=== PATIENT | female | born 1985 | race Caucasian/White ===

== ENCOUNTER 2016-10-18 04:23 | Outpatient (CLI) | payer MEDICAID ==
[~2016-10-18] VITALS: Ht 152.4 cm; Wt 67.3 kg
[2016-10-18 04:30] VITALS: Ht 152.4 cm; Wt 67.3 kg
[2016-10-18 04:32] VITALS: BP 117/69; PULSE 85; RESP 16
[2016-10-18] MEDS ORDERED: LACTATED RINGER'S 1,000 ML IV SCH (04:53)
--- NOTE | 2016-10-18 05:41 | RADRPT ---
PROCEDURE: ULTRASOUND OBSTETRICAL CLINICAL INDICATION: 31-year-old female in labor for cervical length evaluation. TECHNIQUE: Multiple sonographic images of the pelvis were obtained. The images were reviewed on a PACS workstation. COMPARISON: No prior studies are available for comparison. FINDINGS: The cervix is closed with a length of 4.0 cm. There is a single viable intrauterine gestation. Card iac activity is present with 148 beats per minute. There is a vertex presentation. The placenta is p osterior. There is no evidence for an abruption or placenta previa. IMPRESSION: 1. Single viable intrauterine gestation with vertex presentation. 2. The cervix appears closed with a length of 4.0 cm. .Santos Contreras MD, Date Time Electronically viewed and signed by .Santos Contreras MD, MD on 10/18/2016 05:41 .M/
[2016-10-18 05:43] LABS: ADD SCAN DIFF NO
[2016-10-18 05:53] LABS: ADD UMIC YES; BASOPHILS % 0.2 % (0.0-2.0); EOSINOPHILS # 0.2 10^3/ul (0.0-0.5); EOSINOPHILS % 2.5 % (0.0-7.0); HEMATOCRIT 36.9 % (37.0-47.0); HEMOGLOBIN 12.5 g/dl (12.0-16.0); LYMPHOCYTES # 0.7 10^3/ul (0.8-2.9); LYMPHOCYTES % 7.7 % (15.0-51.0); MEAN CORPUSCULAR HEMOGLOBIN 33.1 pg (29.0-33.0); MEAN CORPUSCULAR HGB CONC 33.9 g/dl (32.0-37.0); MEAN CORPUSCULAR VOLUME 97.6 fl (82.0-101.0); MEAN PLATELET VOLUME 10.6 fl (7.4-10.4); MONOCYTE # 0.4 10^3/ul (0.3-0.9); MONOCYTES % 4.4 % (0.0-11.0); NEUTROPHIL # 7.8 10^3/ul (1.6-7.5); NEUTROPHILS % 84.3 % (39.0-77.0); PLATELET COUNT 201 10^3/UL (140-415); RED BLOOD COUNT 3.78 10^6/ul (4.20-5.40); RED CELL DISTRIBUTION WIDTH 13.8 % (11.5-14.5); URINE BILIRUBIN (Dip) NEGATIVE (NEGATIVE); URINE BLOOD (Dip) TRACE (NEGATIVE); URINE COLOR BROWN (YELLOW); URINE GLUCOSE (Dip) NEGATIVE (NEGATIVE); URINE KETONES (Dip) NEGATIVE (NEGATIVE); URINE LEUKOCYTE ESTERASE (Dip) 3+ (NEGATIVE); URINE NITRITE (Dip) NEGATIVE (NEGATIVE); URINE TOTAL PROTEIN (Dip) 1+ (NEGATIVE); URINE UROBILINOGEN (Dip) 0.2 E.U./dL (0.1-1.0); WHITE BLOOD COUNT 9.2 10^3/ul (4.8-10.8)
[2016-10-18 06:16] LABS: ALBUMIN 3.5 g/dl (3.3-4.9); ALBUMIN/GLOBULIN RATIO 1.06; BILIRUBIN,INDIRECT 0.2 mg/dl (0-1.1); BILIRUBIN,TOTAL 0.2 mg/dl (0.2-1.3); CALCIUM 8.7 mg/dl (8.4-10.2); CREATININE 0.54 mg/dl (0.44-1.00); POTASSIUM 3.7 mmol/L (3.5-5.1); TOTAL PROTEIN 6.8 g/dl (6.1-8.1)
[2016-10-18 06:27] LABS: BACTERIA,URINE MANY; SQUAMOUS EPITHELIAL CELL,UR MANY
[2016-10-18 06:28] LABS: URINE RBCS 0-2 /HPF (0)
--- NOTE | 2016-10-18 06:57 | CONS ---
Date/Time of Note Date/Time of Note DATE: 10/18/16 TIME: 06:54 Assessment/Plan Assessment/Plan Additional Assessment/Plan No e/o ptl. N/V/D likely due to food poisoning. Discharge home with ptl precautions. Encourage PO hydration. Rx for UTI given. F/u with OB. Consultation Date/Type/Reason Admit Date/Time Hx of Present Illness at 30.2 weeks with N/V/D and abdominal pain. Patient reports symptoms started a few hours after eating some meat yesterday. Abdominal pain feels like contractions. Denies LOF, VB, dysuria. +FM. Getting PNC, no complications. Past Medical History Medical History: no pertinent history Past Surgical History Past Surgical Hx: no surgical history Social History Smoking Status: Never smoker Other Social History Denies habits. Exam/Review of Systems Vital Signs Vitals Vital Signs Date Time Temp Pulse Resp B/P Pulse Ox O2 Delivery O2 Flow Rate FiO2 10/18/16 04:32 97.8 85 16 117/69 Room Air Exam Gen: NAD HEENT: NCAT CV: RRR Pulm: CTAB Abd: gravid, NT Back: no CVAT Ext: NT FHT: reactive Akins: +UCs initially, resolved with IV hydration Results Result Diagram: 10/18/16 0505 10/18/16 0505 Results 24 hrs Laboratory Tests Test 10/18/16 05:05 White Blood Count 9.2 Red Blood Count 3.78 L Hemoglobin 12.5 Hematocrit 36.9 L Mean Corpuscular Volume 97.6 Mean Corpuscular Hemoglobin 33.1 H Mean Corpuscular Hemoglobin Concent 33.9 Red Cell Distribution Width 13.8 Platelet Count 201 Mean Platelet Volume 10.6 H Neutrophils % 84.3 H Lymphocytes % 7.7 L Monocytes % 4.4 Eosinophils % 2.5 Basophils % 0.2 Nucleated Red Blood Cells % 0.0 Neutrophils # 7.8 H Lymphocytes # 0.7 L Monocytes # 0.4 Eosinophils # 0.2 Basophils # 0.0 Nucleated Red Blood Cells # 0.0 Urine Color BROWN Urine Clarity SLIGHTLY CLOUDY Urine pH 6.0 Urine Specific [place]rigan 1.020 Urine Ketones NEGATIVE Urine Nitrite NEGATIVE Urine Bilirubin NEGATIVE Urine Urobilinogen 0.2 E.U./dL Urine Leukocyte Esterase 3+ H Urine Microscopic RBC 0-2 Urine Microscopic WBC 10-25 Urine Squamous Epithelial Cells MANY Urine Bacteria MANY Urine Yeast FEW Urine Hemoglobin TRACE Urine Glucose NEGATIVE Urine Total Protein 1+ H Fibronectin NEGATIVE Sodium Level 134 L Potassium Level 3.7 Chloride Level 109 Carbon Dioxide Level 20 L Anion Gap 9 Blood Urea Nitrogen 11 Creatinine 0.54 Glucose Level 89 Calcium Level 8.7 Total Bilirubin 0.2 Direct Bilirubin 0.00 Indirect Bilirubin 0.2 Aspartate Amino Transf (AST/SGOT) 22 Alanine Aminotransferase (ALT/SGPT) 27 Alkaline Phosphatase 124 H Total Protein 6.8 Albumin 3.5 Globulin 3.30 H Albumin/Globulin Ratio 1.06 Amylase Level 82 Lipase 63 Medications Medications Current Medications Lactated Ringer's (Lr) 1,000 ml @ 125 mls/hr Q8H IV Last administered on t 05:28; Admin Dose 125 MLS/HR; Start 10/18/16 at 04:53 IVY CAO Oct 18, 2016 06:57
--- NOTE | 2016-10-18 10:21 | TRIAGE ---
OB Triage Datetime Report Generated by CPN: 10/18/2016 10:20 Datetime: 10/18/2016 06:48 Stage of : OB Triage Labor Evaluation Frequency: OCCASS Monitor Mode: External Duration (sec)2399: 50-80 Quality: Mild Pattern: Normal: <= 5 Contractions in 10 Minutes Resting Tone Saltese: Relaxed Heart Rate FHR Baseline Rate: 135 Monitor Mode: External US FHR Baseline Changes: No Baseline Change Variability: Moderate 6-25 bpm Accelerations: 15X15 Decelerations: None Category: Category I Pain Assessment Pain Scale: 3 Pain Presence: Constant Pain Type: Cramping Pain Location: Abdomen Pain Goal: 3 Pain Relief Measures: Comfort Measures Datetime: 10/18/2016 05:40 Stage of : OB Triage Temperature Route: Oral Labor Evaluation Frequency: 2-5 Monitor Mode: External Duration (sec)2399: 50-80 Quality: Mild Pattern: Normal: <= 5 Contractions in 10 Minutes Resting Tone Saltese: Relaxed Heart Rate FHR Baseline Rate: 135 Monitor Mode: External US FHR Baseline Changes: No Baseline Change Variability: Moderate 6-25 bpm Accelerations: 15X15 Decelerations: None Category: Category I Pain Assessment Pain Scale: 8 Pain Presence: Constant Pain Type: Cramping Pain Location: Abdomen Pain Goal: 3 Pain Relief Measures: Comfort Measures Datetime: 10/18/2016 05:09 Vaginal Exam Dilatation (cms): 0.0 Effacement (%): 0 Station: -3 Exam By: ISAAC Vaginal Bleeding: None Cervix, Consistency: Soft Cervix, Position: Posterior Presentation 'A': Cephalic Datetime: 10/18/2016 04:37 Stage of : OB Triage Arrived By: Wheelchair Arrived From: Home Chief Complaint: DIARRHEA AND VOMITTING, ABD PAIN Movement: Present Vaginal Discharge: HERE, UPDATED ON CL Patient Complaints: Nausea; Vomiting; Other Time Provider Notified: 10/18/2016 04:50 Provider Notified: UAJE Maternal Assessment Level of Consciousness: Fully Conscious DTR's/Clonus: DTRs 2+; No Clonus Headache: Denies Blurred Vision: No Respiratory Effort: Unlabored; Regular Rhythm; Equal Expansion Breath Sounds, Left: Clear and Equal Breath Sounds, Right: Clear and Equal Nausea/Vomiting: Denies RUQ Epigastric Pain: Denies Facial Edema: None Temperature Route: Axillary Fall Risk Assessment History of Falling: (0) No Secondary Diagnosis: (0) No Ambulatory Aid: (0) Bedrest/Nurse Assist IV Therapy: (0) No Gait: (0) Normal/Bedrest/Immobile Mental Status: (0) Oriented to Own Ability Fall Score: 0 Fall Risk Score Definition: No Risk: No action required Datetime: 10/18/2016 04:35 Time of Arrival: 10/18/2016 04:19 EGA: 30.3 Arrived By: Wheelchair Arrived From: Home Chief Complaint: N/V/D, ABDOMINAL PAIN SINCE 0200 Movement: Present Contractions: Irregular Time Contractions Began: 10/18/2016 02:00 Rupture of Membranes: Denies Vaginal Bleeding: None Vaginal Discharge: Denies Recent Sexual Intercouse: Denies Abdominal Trauma: Not Applicable Patient Complaints: None Datetime: 10/18/2016 04:34 Time of Arrival: 10/18/2016 04:19 Datetime: 10/18/2016 04:28 Labor Evaluation Frequency: X1 Monitor Mode: External Duration (sec)2399: 70 Quality: Mild Pattern: Normal: <= 5 Contractions in 10 Minutes Resting Tone Saltese: Relaxed Heart Rate FHR Baseline Rate: 145 Monitor Mode: External US FHR Baseline Changes: No Baseline Change Variability: Moderate 6-25 bpm Accelerations: 15X15 Decelerations: None Category: Category I
== END 2016-10-18 09:15 | disposition home or self-care (01) ==
LOC: OBT 04:23 → L-D 04:27 → OBT 09:15
PROVIDERS: ATTEND Obstetrics & Gynecology
DX: O23.43 Unspecified infection of urinary tract in pregnancy, third trimester (principal); O21.2 Late vomiting of pregnancy; Z3A.30 30 weeks gestation of pregnancy; O26.893 Other specified pregnancy related conditions, third trimester; R19.7 Diarrhea, unspecified; R10.9 Unspecified abdominal pain
CPT/HCPCS: 36415; 76817; 80053; 81001; 82150; 82731; 83690; 85025; J7120; Z7500; 81003; G0463

== ENCOUNTER 2016-12-15 23:24 | Outpatient (CLI) | payer MEDICAID ==
[~2016-12-15] VITALS: Ht 148.6 cm; Wt 72.2 kg
[2016-12-15 23:56] VITALS: BP 112/59; PULSE 67; RESP 18
[2016-12-15] MEDS ORDERED: PRENAT PO (23:58)
--- NOTE | 2016-12-16 03:02 | RADRPT ---
PROCEDURE: Limited OB ultrasound. CLINICAL INDICATION: . TECHNIQUE: Sonographic evaluation to assess the amniotic fluid volume was performed. Transabdomin al imaging of the gravid uterus was performed. COMPARISON: None. FINDINGS: Single live intrauterine is identified. heart rate is 139 beats per minute. Placenta is posterior in position and grade 1/2 in appearance. There is no evidence of placenta prev ia or abruption. Presentation is cephalic. Amniotic fluid index is 13.1 cm, within normal limits. IMPRESSION: ALECIA = 13.1 cm RPTAT: HIKT .Carlo Macias MD, MD Date Time Electronically viewed and signed by .Carlo Macias MD, MD on 12/16/2016 03:02 .T/
--- NOTE | 2016-12-16 03:31 | PN ---
Triage Information Date/Time Weeks of Gestation 38 6/7 wks : 4 Para: 3 Diabetes: none Hypertention: none Additional information 31 Year-old with SIUP at 38 6/7 presents with a chief complaint of ucs. She has been receiving her care with [facility]. She states good movement. She denies nausea, vomiting, shortness of breath, chest pain, headache, visual changes, vaginal bleeding or LOF. Physical Exam: General: Patient appears well, alert and oriented, NAD, appropriate mood and affect ABD: gravid, soft, non-tender. Back: No CVA tenderness (B/L) LE: No clubbing, cyanosis, edema, thigh or calf tenderness bilaterally FHT: 135 bpm , moderate variability with acceleration, no deceleration-category I SVE: 1/thick/high/ceph/intact membrane- No cx changes in 2 hrs interval Objective Vital Signs Date Time Temp Pulse Resp B/P Pulse Ox O2 Delivery O2 Flow Rate FiO2 12/15/16 23:56 97.9 67 18 112/59 Room Air Heart Rate: 140's Contractions: 6-10 Minutes Apart Assessment/Plan 31 Year-old with SIUP at 38 6/7 with irreg ucs and no cx changes in 2 hrs interval. OB us performed with FI of 13. - FHR: No sign of metabolic acidosis- Category I - Symptoms and sign of labor, preeclampsia, kick count discussed with patient, she voiced understanding. All of her questions answered. - Patient was discharged home in stable condition with the appropriate discharge instructions provided. I would like patient to have close follow-up with her primary physician or outpatient clinic in 1-2 days or return to the ER for worsening symptoms or any other urgent concerns. TOMASA CARTY Dec 16, 2016 03:31
== END 2016-12-16 03:32 | disposition home or self-care (01) ==
LOC: OBT 23:24 → L-D 23:28 → OBT 12-16 03:32
PROVIDERS: ATTEND Obstetrics & Gynecology
DX: O62.9 Abnormality of forces of labor, unspecified (principal); Z3A.38 38 weeks gestation of pregnancy
CPT/HCPCS: 76815; Z7500; G0463

== ENCOUNTER 2016-12-18 19:16 | Outpatient (CLI) | payer MEDICAID ==
[~2016-12-18] VITALS: Ht 152.4 cm; Wt 71.9 kg
[~2016-12-18 19:16] MED LIST: PRENAT PO
[2016-12-18 19:37] VITALS: Ht 152.4 cm; Wt 71.9 kg
[2016-12-18 19:38] VITALS: BP 93/61; PULSE 92; RESP 18
--- NOTE | 2016-12-18 20:08 | TRIAGE ---
OB Triage Datetime Report Generated by CPN: 12/18/2016 20:08 Datetime: 12/18/2016 19:48 Labor Evaluation Frequency: 0 Monitor Mode: External Heart Rate FHR Baseline Rate: 155 Monitor Mode: External US FHR Baseline Changes: No Baseline Change Variability: Moderate 6-25 bpm Accelerations: 15X15 Decelerations: None Category: Category I Datetime: 12/18/2016 19:22 Stage of : OB Triage Time of Arrival: 12/18/2016 19:00 EGA: 39.1 Arrived By: Wheelchair Arrived From: Home Chief Complaint: CONTRACTIONS Movement: Present Contractions: Denies/Absent Time Contractions Began: 12/18/2016 19:15 Vaginal Bleeding: None Vaginal Discharge: Denies Recent Sexual Intercouse: Denies Abdominal Trauma: Not Applicable Time Provider Notified: 12/18/2016 19:43 Provider Notified: DR CAO Initial Plan: CALL , EFM Maternal Assessment Level of Consciousness: Fully Conscious DTR's/Clonus: DTRs 2+; No Clonus Headache: Denies Blurred Vision: No Respiratory Effort: Unlabored; Regular Rhythm; Equal Expansion Breath Sounds, Left: Clear and Equal Breath Sounds, Right: Clear and Equal Nausea/Vomiting: Denies RUQ Epigastric Pain: Denies Lower Extremities Edema: None Degree: None Upper Extremities Edema: None Degree: None Facial Edema: None Temperature Route: Oral Fall Risk Assessment History of Falling: (0) No Secondary Diagnosis: (0) No Ambulatory Aid: (0) Bedrest/Nurse Assist IV Therapy: (0) No Gait: (0) Normal/Bedrest/Immobile Mental Status: (0) Oriented to Own Ability Fall Score: 0 Fall Risk Score Definition: No Risk: No action required Monitor Mode: External Monitor Mode: External US Pain Assessment Pain Scale: 4 Datetime: 12/16/2016 03:26 Stage of : OB Triage Heart Rate FHR Baseline Rate: 130 Monitor Mode: External US FHR Baseline Changes: No Baseline Change Variability: Moderate 6-25 bpm Accelerations: 15X15 Decelerations: None Category: Category I Datetime: 12/16/2016 02:51 Labor Evaluation Frequency: x1 Monitor Mode: External Quality: Mild Pattern: Normal: <= 5 Contractions in 10 Minutes Resting Tone Amaya: Relaxed Heart Rate FHR Baseline Rate: 130 Monitor Mode: External US FHR Baseline Changes: No Baseline Change Variability: Moderate 6-25 bpm Accelerations: 15X15 Decelerations: None Category: Category I Vaginal Exam Dilatation (cms): 1.0 Effacement (%): 30 Station: -3 Exam By: Namita Puckett Membrane Status: Intact Vaginal Bleeding: None Cervix, Consistency: Soft Cervix, Position: Posterior Presentation 'A': Cephalic Datetime: 12/16/2016 02:34 Stage of : OB Triage Monitor Mode: External Resting Tone Amaya: Relaxed Heart Rate FHR Baseline Rate: 130 Monitor Mode: External US Datetime: 12/16/2016 00:38 Stage of : OB Triage Labor Evaluation Frequency: 5-12 Monitor Mode: External Quality: Moderate Pattern: Normal: <= 5 Contractions in 10 Minutes Resting Tone Amaya: Relaxed Heart Rate FHR Baseline Rate: 140 Monitor Mode: External US FHR Baseline Changes: No Baseline Change Variability: Moderate 6-25 bpm Accelerations: 15X15 Decelerations: None Category: Category I Datetime: 12/16/2016 00:10 Labor Evaluation Frequency: 10-12 Monitor Mode: External Duration (sec)2399: 60-80 Quality: Moderate Pattern: Normal: <= 5 Contractions in 10 Minutes Resting Tone Amaya: Relaxed Heart Rate FHR Baseline Rate: 140 Monitor Mode: External US FHR Baseline Changes: No Baseline Change Variability: Moderate 6-25 bpm Accelerations: 15X15 Decelerations: None Category: Category I Pain Assessment Pain Scale: 7 Pain Presence: Intermittent Pain Type: Contraction Pain Location: Abdomen Pain Assessment Comments: Pt states ucs are veryt strong and she is not able to tolerate pain, yehuda when walking. Vaginal Exam Dilatation (cms): 1.0 Effacement (%): 30 Station: -3 Exam By: Namita Puckett Membrane Status: Intact Vaginal Bleeding: None Cervix, Consistency: Soft Cervix, Position: Posterior Datetime: 12/15/2016 23:46 Time of Arrival: 12/15/2016 23:20 EGA: 38.5 Arrived By: Wheelchair Arrived From: Home Chief Complaint: c/o ucs Movement: Present Contractions: Regular Time Contractions Began: 12/14/2016 15:00 Contractions: Q10 Rupture of Membranes: Denies Vaginal Bleeding: None Vaginal Discharge: Denies Recent Sexual Intercouse: Denies Abdominal Trauma: Not Applicable Patient Complaints: Contractions Time Provider Notified: 12/16/2016 00:35 Provider Notified: Dr Dillon Initial Plan: EFM, SVE Datetime: 12/15/2016 23:39 Maternal Assessment Level of Consciousness: Fully Conscious Headache: Denies Blurred Vision: No Respiratory Effort: Unlabored Nausea/Vomiting: Denies RUQ Epigastric Pain: Denies Facial Edema: None Labor Evaluation Frequency: placed Monitor Mode: External Resting Tone Amaya: Relaxed Monitor Mode: External US Comments: [id number] Pain Assessment Pain Scale: 7 Pain Presence: Intermittent Pain Type: Contraction Pain Location: Abdomen Datetime: 10/18/2016 04:37 Fall Score: 0 Fall Risk Score Definition: No Risk: No action required Datetime: 10/18/2016 04:35 EGA: 30.3
[2016-12-18 20:31] LABS: ADD UMIC NO; UR ASCORBIC ACID NEGATIVE (NEGATIVE); UR BILIRUBIN (Dip) NEGATIVE (NEGATIVE); UR BLOOD (Dip) NEGATIVE (NEGATIVE); UR CLARITY CLEAR (CLEAR); UR COLOR COLORLESS (YELLOW); UR GLUCOSE (Dip) NEGATIVE (NEGATIVE); UR KETONES (Dip) NEGATIVE (NEGATIVE); UR LEUKOCYTE ESTERASE (Dip) NEGATIVE Leu/ul (NEGATIVE); UR NITRITE (Dip) NEGATIVE (NEGATIVE); UR SPECIFIC GRAVITY (Dip) 1.003 (1.003-1.030); UR TOTAL PROTEIN (Dip) NEGATIVE (NEGATIVE); UR UROBILINOGEN (Dip) NEGATIVE (NEGATIVE)
--- NOTE | 2016-12-18 20:38 | RADRPT ---
PROCEDURE: US OB. CLINICAL INDICATION: Uterine contractions TECHNIQUE: Pelvic ultrasound performed for biophysical profile. COMPARISON: 12/16/2016 FINDINGS: Single intrauterine gestation present with heart rate at 136 beats per minute. Presentation is ceph alic. Placenta is posterior, grade II. Biophysical profile score is 8/8 (breathing=2, movement=2, tone =2, fluid volume=2). Amniotic fluid volume is within normal limits, with ALECIA = 15.4 cm. RPTAT:HJJR IMPRESSION: 1. Biophysical profile score 8/8. 2. Amniotic fluid index no measured at 15.4 cm, previously 13.1 cm on 12/16/2016. Physician Maria Date Time Electronically viewed and signed by Physician Maria on 12/18/2016 20:37 /
--- NOTE | 2016-12-18 21:02 | PN ---
Triage Information Date/Time Weeks of Gestation 39 1/7 : 4 Para: 3 Additional information Presents with dfm and abdominal pain Objective Vital Signs Date Time Temp Pulse Resp B/P Pulse Ox O2 Delivery O2 Flow Rate FiO2 12/18/16 19:38 97.9 92 18 93/61 Room Air Heart Rate Comments reactive Contractions: None Exam 0/0/-3 Results/Medications Results 24 hrs Laboratory Tests Test 12/18/16 20:07 Urine Color COLORLESS Urine Clarity CLEAR Urine pH 7.0 Urine Specific [place] 1.003 Urine Ketones NEGATIVE Urine Nitrite NEGATIVE Urine Bilirubin NEGATIVE Urine Urobilinogen NEGATIVE Urine Leukocyte Esterase NEGATIVE Urine Hemoglobin NEGATIVE Urine Glucose NEGATIVE Urine Total Protein NEGATIVE Assessment/Plan at 39 1/7 weeks with dfm, abdominal pain -BPP 8/8 per verbal, f/u results -discharge home with labor precautions -f/u with OB IVY CAO Dec 18, 2016 21:02
--- NOTE | 2016-12-18 22:05 | TRIAGE ---
OB Triage Datetime Report Generated by CPN: 12/18/2016 22:04 Datetime: 12/18/2016 21:00 Frequency: 1/HR Monitor Mode: External Duration (sec)2399: 60 Quality: Mild Pattern: Normal: <= 5 Contractions in 10 Minutes Resting Tone Cleary: Relaxed FHR Baseline Rate: 135 Monitor Mode: External US FHR Baseline Changes: No Baseline Change Variability: Moderate 6-25 bpm Accelerations: 15X15 Decelerations: None Category: Category I Datetime: 12/18/2016 20:20 Dilatation (cms): 0.0 Effacement (%): 0 Station: -3 Exam By: Esvin DA SILVA RN Vaginal Bleeding: None Cervix, Consistency: Firm Cervix, Position: Posterior Datetime: 12/18/2016 19:22 Time Provider Notified: 12/18/2016 20:28
== END 2016-12-18 21:30 | disposition home or self-care (01) ==
LOC: L-D 19:16 → OBT 19:16
PROVIDERS: ATTEND Obstetrics & Gynecology
DX: O36.8130 Decreased fetal movements, third trimester, not applicable or unspecified (principal); Z3A.39 39 weeks gestation of pregnancy; O26.893 Other specified pregnancy related conditions, third trimester; Z3A.38 38 weeks gestation of pregnancy; R10.9 Unspecified abdominal pain
CPT/HCPCS: 76818; 81003; 87086; Z7500; G0463

== ENCOUNTER 2016-12-20 02:19 | Inpatient (IN) | payer MEDICAID ==
[~2016-12-20] VITALS: Ht 152.4 cm; Wt 70.7 kg
[2016-12-20 02:27] VITALS: Ht 152.4 cm; Wt 70.7 kg
[2016-12-20 02:28] VITALS: BP 124/68; PULSE 62; RESP 20
[2016-12-20] MEDS ORDERED: LACTATED RINGER'S 1,000 ML IV SCH (02:54)
[2016-12-20] MEDS ORDERED: CARBOPROST 250 MCG INJ IM PRN (03:00)
[2016-12-20] MEDS ORDERED: OXYTOCIN 30 UNITS/LR 500 ML IV PRN (03:00)
[2016-12-20] MEDS ORDERED: LIDOCAINE 1% (MPF) 30 ML INJ INJ PRN (03:00)
[2016-12-20] MEDS ORDERED: IBUPROFEN 600 MG TAB PO PRN (03:00)
[2016-12-20] MEDS ORDERED: AMPICILLIN 2 GM/NS (PMX) 100 ML IV ONE (03:00)
[2016-12-20] MEDS ORDERED: METHYLERGONOVINE 0.2 MG INJ IM PRN (03:00)
[2016-12-20] MEDS ORDERED: MISOPROSTOL 200 MCG TAB PR PRN (03:00)
[2016-12-20] MEDS ORDERED: OXYTOCIN 30 UNITS/LR 500 ML IV SCH (03:00)
[2016-12-20] MEDS ORDERED: LACTATED RINGER'S 1,000 ML IV PRN (03:00)
--- NOTE | 2016-12-20 03:08 | TRIAGE ---
OB Triage Datetime Report Generated by CPN: 12/20/2016 03:08 Datetime: 12/20/2016 03:02 Time of Arrival: 12/20/2016 02:10 EGA: 39.3 Chief Complaint: CONTRACTIONS Contractions: Denies/Absent Contractions: Q5-7 MIN PER PATIENT Patient Complaints: Contractions Time Provider Notified: 12/20/2016 02:50 Provider Notified: REICHE Initial Plan: CEFM, SVE Datetime: 12/20/2016 03:00 Frequency: 5-7 Monitor Mode: External Duration (sec)2399: 50-70 Quality: Mild Pattern: Normal: <= 5 Contractions in 10 Minutes Resting Tone [place]: Relaxed FHR Baseline Rate: 130 Monitor Mode: External US Variability: Moderate 6-25 bpm Accelerations: 15X15 Decelerations: Early; Prolonged Category: Category II Datetime: 12/20/2016 02:21 Dilatation (cms): 4.0 Effacement (%): 80 Station: -1 Exam By: BE Vaginal Bleeding: None Cervix, Consistency: Soft Cervix, Position: Midposition Presentation 'A': Cephalic Datetime: 12/20/2016 02:20 Stage of : OB Triage Assessment Type: Triage Level of Consciousness: Fully Conscious DTR's/Clonus: DTRs 2+; No Clonus Headache: Denies Blurred Vision: No Respiratory Effort: Unlabored; Regular Rhythm; Equal Expansion Breath Sounds, Left: Clear and Equal Breath Sounds, Right: Clear and Equal Nausea/Vomiting: Denies RUQ Epigastric Pain: Denies Lower Extremities Edema: None Degree: None Upper Extremities Edema: None Degree: None Facial Edema: None Temperature Route: Oral History of Falling: (0) No Secondary Diagnosis: (0) No Ambulatory Aid: (0) Bedrest/Nurse Assist IV Therapy: (0) No Gait: (0) Normal/Bedrest/Immobile Mental Status: (0) Oriented to Own Ability Fall Score: 0 Fall Risk Score Definition: No Risk: No action required Pain Scale: 8 Pain Presence: Intermittent Pain Type: Cramping; Contraction Pain Location: Abdomen
[2016-12-20 03:38] LABS: ADD SCAN DIFF NO
[2016-12-20 03:53] LABS: INR 0.85; PROTIME 11.6 Sec (12.2-14.2); PT RATIO 0.9
[2016-12-20 03:54] LABS: PARTIAL THROMBOPLASTIN TIME 27.6 Sec (25.0-35.0)
[2016-12-20 03:55] LABS: ALBUMIN 4.1 g/dl (3.3-4.9); ALBUMIN/GLOBULIN RATIO 1.36; BILIRUBIN,INDIRECT 0.2 mg/dl (0-1.1); BILIRUBIN,TOTAL 0.2 mg/dl (0.2-1.3); CALCIUM 9.2 mg/dl (8.4-10.2); CREATININE 0.62 mg/dl (0.44-1.00); POTASSIUM 3.7 mmol/L (3.5-5.1); TOTAL PROTEIN 7.1 g/dl (6.1-8.1)
[2016-12-20 04:05] LABS: BASOPHILS % 0.4 % (0.0-2.0); EOSINOPHILS # 0.1 10^3/ul (0.0-0.5); EOSINOPHILS % 0.9 % (0.0-7.0); HEMATOCRIT 38.3 % (37.0-47.0); HEMOGLOBIN 12.7 g/dl (12.0-16.0); LYMPHOCYTES # 1.6 10^3/ul (0.8-2.9); LYMPHOCYTES % 19.3 % (15.0-51.0); MEAN CORPUSCULAR HEMOGLOBIN 32.2 pg (29.0-33.0); MEAN CORPUSCULAR HGB CONC 33.2 g/dl (32.0-37.0); MEAN PLATELET VOLUME 11.1 fl (7.4-10.4); MONOCYTE # 0.6 10^3/ul (0.3-0.9); MONOCYTES % 7.1 % (0.0-11.0); NEUTROPHIL # 6.1 10^3/ul (1.6-7.5); NEUTROPHILS % 71.5 % (39.0-77.0); PLATELET COUNT 192 10^3/UL (140-415); RED BLOOD COUNT 3.95 10^6/ul (4.20-5.40); RED CELL DISTRIBUTION WIDTH 13.9 % (11.5-14.5); WHITE BLOOD COUNT 8.5 10^3/ul (4.8-10.8)
[2016-12-20] MEDS: BUTORPHANOL 2 MG INJ IV PRN ×3 (04:10→08:31)
[2016-12-20 04:21] LABS: BARBITURATES Negative (NEGATIVE); BENZODIAZEPINES Negative (NEGATIVE); CANNABINOIDS Negative (NEGATIVE); COCAINE Negative (NEGATIVE); OPIATES Negative (NEGATIVE)
[2016-12-20] MEDS ORDERED: AMPICILLIN 1 GM/NS (PMX) 50 ML IV SCH (07:00)
[2016-12-20] MEDS: OXYTOCIN 30 UNITS/LR 500 ML IV SCH ×4 (07:40→15:17)
--- NOTE | 2016-12-20 08:58 | HP ---
Date/Time of Note Date/Time of Note DATE: 12/20/16 TIME: 08:50 OB - History Hx of Present Free Text/Dictation 31 years old female 4 para 3 admitted to [facility] at 39 weeks and 3 days in labor pelvic examination on admission , cervix 4 cm dilated 80% effaced vertex at -1 station , contractions every 3-5 minutes, this patient has been under the care of the [facility] and her was not complicated with gestational diabetes -induced hypertension Past history 3 normal vaginal delivery no other hospitalization for any surgical or medical conditions Chief Complaint: 39 weeks 3 days in labor Estimated Due Date: Dec 24, 2016 : 4 Para: 3 Care: Good Care Ultrasounds: Normal mid trimester US Obstetrical Complications: None Medical Complications: None Past Family/Social History * Past Medical, Surgical, Family and Obstetric Histories reviewed from chart. Rubella: immune RPR/VDRL: Negative GBS Status: Negative HBsAG: Negative OB Admission Exam Vital Signs Vital Signs Vital Signs Date Time Temp Pulse Resp B/P Pulse Ox O2 Delivery O2 Flow Rate FiO2 12/20/16 02:28 97.9 62 20 124/68 Room Air Physical Exam HEENT: WNL Heart: Rhythm Normal Lungs: Clear, Equal Abdomen: WNL Extremities: Normal Reflexes: Normal Cervical Dilatation: 4cm Effacement: Other (80%) Station: -2 Membranes: Ruptured Amniotic Fluid: Clear Heart Rate: 130's Accelerations: Accelerations Present Decelerations: No Decelerations Varibility: Moderate Contractions on Admission: < 5 Minutes Apart Intensity: Moderate Last 72 hours Lab Results CBC & BMP 12/20/16 03:15 Liver Function Test 12/20/16 03:15 Alanine Aminotransferase (ALT/SGPT) 31 Albumin 4.1 Alkaline Phosphatase 183 H Aspartate Amino Transf (AST/SGOT) 20 Direct Bilirubin 0.00 Total Protein 7.1 CLAUDIA MO MD Dec 20, 2016 08:58
--- NOTE | 2016-12-20 09:05 | LDN ---
Date/Time of Note Date/Time of Note DATE: 12/20/16 TIME: 08:59 Delivery Summary Normal spontaneous vaginal delivery of a baby girl from OA position shoulders delivered without any difficulties rest of the baby's body followed cord clamped after stopped pulsation placenta spontaneous expulsion inspected complete blood loss 200 cc patient sustained small first-degree perineal laceration. Repaired with 4-0 chromic catgut Weeks of Gestation 39 weeks 3 days Placenta Delivered: Spontaneously Meconium: none Perineal laceration: 1 Laceration repair: Small first-degree perineal laceration Anesthesia type: Local Estimated blood loss: 200 Sponge & Needle done & correct: Yes All needle counts correct: Yes Any foreign bodies felt in the: No Problems: Infant Delivery Information Sex Sex: female Apgars 1 Minute: 9 5 Minute: 9 Suctioning Nose & mouth suctioned at octavio: Yes Delee suction performed: No Umbilical Cord Umbilical cord with: 3 Vessels Cord Blood was obtained: Yes CLAUDIA MO MD Dec 20, 2016 09:05
[2016-12-20 11:00] VITALS: BP 106/64; PULSE 68
[2016-12-20] MEDS ORDERED: OXYCODONE/ASPIRIN (4.88/325) TAB PO PRN ×2 (11:30)
[2016-12-20] MEDS ORDERED: WITCH HAZEL/GLYCERIN PAD PR PRN (11:30)
[2016-12-20] MEDS ORDERED: ACETAMINOPHEN 325 MG TAB PO PRN (11:30)
[2016-12-20] MEDS ORDERED: ONDANSETRON 4 MG INJ IV PRN (11:30)
[2016-12-20] MEDS ORDERED: DIBUCAINE 1% 30 GM OINT PR PRN (11:30)
[2016-12-20] MEDS ORDERED: BENZOCAINE 20% 56 ML SPRAY TOP PRN (11:30)
[2016-12-20] MEDS ORDERED: LANOLIN 7 GM TUBE TOP PRN (11:30)
[2016-12-20] MEDS ORDERED: ACETAMINOPHEN/CODEINE #3 TAB PO PRN ×2 (11:30)
[2016-12-20] MEDS: IBUPROFEN 600 MG TAB PO SCH ×2 (12:00→17:37)
[2016-12-20 12:23] VITALS: BP 110/70; PULSE 62; RESP 20
[2016-12-20 15:39] VITALS: BP 112/60; PULSE 72; RESP 18
[2016-12-20 19:50] VITALS: BP 98/52; PULSE 86; RESP 18
[2016-12-20] MEDS: SENNA/DOCUSATE NA (8.6MG/50MG) TAB PO SCH (21:21)
[2016-12-21] MEDS: IBUPROFEN 600 MG TAB PO SCH ×4 (00:23→17:26)
[2016-12-21 04:05] VITALS: BP 90/44; PULSE 60; RESP 18
[2016-12-21 07:31] LABS: ADD SCAN DIFF NO
[2016-12-21 07:51] LABS: BASOPHILS % 0.4 % (0.0-2.0); EOSINOPHILS # 0.1 10^3/ul (0.0-0.5); EOSINOPHILS % 1.7 % (0.0-7.0); HEMATOCRIT 34.4 % (37.0-47.0); HEMOGLOBIN 11.3 g/dl (12.0-16.0); LYMPHOCYTES # 1.9 10^3/ul (0.8-2.9); MEAN CORPUSCULAR HEMOGLOBIN 32.8 pg (29.0-33.0); MEAN CORPUSCULAR HGB CONC 32.8 g/dl (32.0-37.0); MEAN PLATELET VOLUME 11.2 fl (7.4-10.4); MONOCYTE # 0.5 10^3/ul (0.3-0.9); MONOCYTES % 7.6 % (0.0-11.0); NEUTROPHIL # 4.3 10^3/ul (1.6-7.5); NEUTROPHILS % 62.7 % (39.0-77.0); PLATELET COUNT 157 10^3/UL (140-415); RED BLOOD COUNT 3.44 10^6/ul (4.20-5.40); RED CELL DISTRIBUTION WIDTH 14.3 % (11.5-14.5); WHITE BLOOD COUNT 6.9 10^3/ul (4.8-10.8)
[2016-12-21 08:00] VITALS: BP 109/55; PULSE 62; RESP 18
[2016-12-21] MEDS: SENNA/DOCUSATE NA (8.6MG/50MG) TAB PO SCH ×2 (08:20→21:09)
--- NOTE | 2016-12-21 12:19 | PN ---
Date/Time of Note Date/Time of Note DATE: 12/21/16 TIME: 12:17 OB Subjective Subjective Subjective Post normal vaginal delivery day 1 Afebrile vital signs are stable abdomen soft uterus firm lochia normal extremities normal ambulation encouraged CLAUDIA MO MD Dec 21, 2016 12:19
[2016-12-21 15:59] VITALS: BP 106/58; PULSE 74; RESP 20
[2016-12-21 20:15] VITALS: BP 94/58; PULSE 69; RESP 18
[2016-12-22] MEDS: IBUPROFEN 600 MG TAB PO SCH ×3 (00:16→12:49)
[2016-12-22 04:00] VITALS: BP 85/58; PULSE 70; RESP 18
[2016-12-22 08:00] VITALS: BP 99/59; PULSE 57; RESP 18
[2016-12-22] MEDS ORDERED: MEASLES,MUMPS,RUBELLA VACCINE INJ SC* ONE (09:00)
[2016-12-22] MEDS: SENNA/DOCUSATE NA (8.6MG/50MG) TAB PO SCH (09:39)
--- NOTE | 2016-12-22 09:50 | PD.PPDC ---
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 Condition Patient Condition: Good Diet Diet: Resume Regular Diet Activity/Restrictions Activity: Normal Activity May Shower Restrictions: No Exercising No Lifting No Driving No Sexual Activity Nothing in the Vagina No [place] No Tampons, douche Follow-up Follow-up with Physician: 2, Week/Weeks Provider Information: Appointment clinic in 2 weeks for check Return to clinic for INSTITUTION[facility] COOK Instructions: Fever greater than 101 Chills Worsening abdominal pain Excessive Vaginal Bleeding More than 2 pads per hour Unable to tolerate diet OB Instructions: Breast Tenderness Depression Blurried Vision Headache CLAUDIA MO MD Dec 22, 2016 09:50
--- NOTE | 2016-12-22 09:52 | DS ---
Date/Time of Note Date/Time of Note DATE: 12/22/16 TIME: 09:51 Discharge Summary Admission/Discharge Info Admit Date/Time Dec 20, 2016 at 02:59 Discharge Date/Time December 22, 2016 at 9:50 AM Discharge Diagnosis Post normal vaginal delivery day 2 Procedures Normal vaginal delivery Hx of Present Illness Term Hospital Course Satisfactory uneventful Home Meds Reported Medications Multivit/Min/Fol Ac/Iron/Pren* ( S*) 1 Tab Tab, 1 TAB PO DAILY, TAB 12/15/16 Follow-up Plan Appointment clinic in 2 weeks for check Primary Care Provider Care Physician No Primary Time spent on discharge: < 30 minutes CLAUDIA MO MD Dec 22, 2016 09:52
[2016-12-23 11:19] LABS: RUBELLA ANTIBODY - IGG 5.66 index
== END 2016-12-22 15:57 | disposition home or self-care (01) | DRG 775 ==
LOC: OBT 02:19 → L-D 02:21 → OBT 02:59 → L-D 02:59 → PP1 10:44
PROVIDERS: ADMIT Obstetrics & Gynecology; ATTEND Obstetrics & Gynecology
PROC: 10E0XZZ Delivery of Products of Conception, External Approach (ICD-10-PCS; principal; 2016-12-20)
PROC: 0HQ9XZZ Repair Perineum Skin, External Approach (ICD-10-PCS; 2016-12-20)
DX: O70.0 First degree perineal laceration during delivery (principal); Z37.0 Single live birth; Z3A.39 39 weeks gestation of pregnancy
CPT/HCPCS: 80053; 80307; 85025; 85610; 85730; 86592; 86703; 86762; 86900; 86901; 87340; G0463; J0290; J0595; J2590; J7120

== ENCOUNTER 2017-09-16 10:14 | Emergency (ER) | END 2017-09-16 10:45 | disposition home or self-care (01) ==

== ENCOUNTER 2018-12-21 16:36 | Outpatient (CLI) | payer MEDICAID ==
[~2018-12-21] VITALS: Ht 152.4 cm; Wt 71.8 kg
[~2018-12-21 16:36] MED LIST changes: +AMOX1TAB10 PO; +IBUP-1542 PO; +PHEN-651 PO
[2018-12-21 17:03] VITALS: Ht 152.4 cm; Wt 71.8 kg
[2018-12-21 17:04] VITALS: BP 97/52; PULSE 71; RESP 19
[2018-12-21] MEDS ORDERED: HYDROCODONE/APAP (5/325) TAB PO ONE (18:00)
--- NOTE | 2018-12-21 21:55 | PN ---
Triage Information Date/Time Reason for visit: Uterine contractions Weeks of Gestation 37 weeks /Para Diabetes: none Hypertention: none Objective Vital Signs Date Temp Pulse Resp B/P (MAP) Pulse Ox O2 O2 Flow FiO2 Time Delivery Rate 12/21/18 98.1 71 19 97/52 (67) Room Air 17:04 Heart Rate: 120's Heart Rate Comments Reactive Exam Cervix 1 cm Results/Medications Imaging Results BPP 02/03 Disposition: Discharge Assessment/Plan Patient denies any leakage of fluid or vaginal bleeding. No cervical change ADRI ALVARADO MD Dec 21, 2018 21:55
--- NOTE | 2018-12-21 22:03 | TRIAGE ---
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 Datetime: 12/21/2018 18:54 Labor Evaluation Frequency: 2-4 Monitor Mode: External Duration (sec)2399: 60-110 Quality: Mild Pattern: Normal: <= 5 Contractions in 10 Minutes Resting Tone [place]: Relaxed Heart Rate FHR Baseline Rate: 135 Monitor Mode: External US FHR Baseline Changes: No Baseline Change Variability: Moderate 6-25 bpm Accelerations: 15X15 Decelerations: None Category: Category I Pain Assessment Pain Scale: 6 Pain Presence: Intermittent Pain Type: Contraction Pain Location: Abdomen; Back Pain Goal: 8 Pain Relief Measures: Comfort Measures Datetime: 12/21/2018 18:28 Labor Evaluation Frequency: 2-6 Monitor Mode: External Duration (sec)2399: 60-110 Quality: Mild Pattern: Normal: <= 5 Contractions in 10 Minutes Resting Tone [place]: Relaxed Heart Rate FHR Baseline Rate: 135 Monitor Mode: External US FHR Baseline Changes: No Baseline Change Variability: Moderate 6-25 bpm Accelerations: 15X15 Decelerations: None Category: Category I Datetime: 12/21/2018 18:00 Labor Evaluation Frequency: 3-8 Monitor Mode: External Duration (sec)2399: 60-90 Quality: Mild Pattern: Normal: <= 5 Contractions in 10 Minutes Resting Tone [place]: Relaxed Heart Rate FHR Baseline Rate: 135 Monitor Mode: External US FHR Baseline Changes: No Baseline Change Variability: Moderate 6-25 bpm Accelerations: 15X15 Decelerations: None Category: Category I Datetime: 12/21/2018 17:48 Comments: U/S at bedside Datetime: 12/21/2018 17:42 Comments: [place] was offered to pt as per Dr. Dillon's orders for pain. Pt refuse it Datetime: 12/21/2018 17:32 Comments: Dr. Dillon was informed of pt's arrival to unit with c/o back pain and contractions. Ne w order for [place], NST, BPP, PO hydration and re-check VE in 2 hrs Datetime: 12/21/2018 17:30 Labor Evaluation Frequency: 2-9 Monitor Mode: External Duration (sec)2399: 60-110 Quality: Mild Pattern: Normal: <= 5 Contractions in 10 Minutes Resting Tone [place]: Relaxed Heart Rate FHR Baseline Rate: 135 Monitor Mode: External US FHR Baseline Changes: No Baseline Change Variability: Moderate 6-25 bpm Accelerations: 15X15 Decelerations: None Category: Category I Pain Assessment Pain Scale: 6 Pain Presence: Intermittent Pain Type: Contraction Pain Location: Abdomen; Back Pain Goal: 8 Pain Relief Measures: Comfort Measures Membrane Status: Intact Datetime: 12/21/2018 17:16 Vaginal Exam Dilatation (cms): 1.0 Effacement (%): 40 Station: -2 Exam By: lh Datetime: 12/21/2018 17:13 Assessment Type: Triage Maternal Assessment Level of Consciousness: Keenly Alert, Responsive DTR's/Clonus: DTRs 2+; No Clonus Headache: Denies Blurred Vision: No Respiratory Effort: Unlabored; Regular Rhythm; Equal Expansion Breath Sounds, Left: Clear and Equal Breath Sounds, Right: Clear and Equal Nausea/Vomiting: Denies RUQ Epigastric Pain: Denies Lower Extremities Edema: Bilateral Lower Extremities Degree: 1+ Upper Extremities Edema: None Facial Edema: None Fall Risk Assessment History of Falling: (0) No Secondary Diagnosis: (0) No Ambulatory Aid: (0) Bedrest/Nurse Assist IV Therapy: (0) No Gait: (0) Normal/Bedrest/Immobile Mental Status: (0) Oriented to Own Ability Fall Score: 0 Fall Risk Score Definition: No Risk: No action required Datetime: 12/21/2018 17:12 Stage of : OB Triage Pain Assessment Pain Scale: 6 Pain Presence: Intermittent Pain Type: Contraction Pain Location: Abdomen; Back Pain Goal: 8 Datetime: 12/21/2018 17:11 Stage of : OB Triage Datetime: 12/21/2018 17:05 Time of Arrival: 12/14/2018 16:25 EGA: 36.4 Arrived By: Ambulatory Arrived From: Office Chief Complaint: Contractions, Back pain Movement: Present Contractions: Irregular Time Contractions Began: 12/21/2018 15:00 Rupture of Membranes: Denies Vaginal Bleeding: None Vaginal Discharge: Denies Recent Sexual Intercouse: Denies Abdominal Trauma: Not Applicable Patient Complaints: Contractions Time Provider Notified: 12/21/2018 17:32 Provider Notified: Santana Initial Plan: NST, BPP, PO hydration, [place] for pain, Re-check VE in 2 hrs
== END 2018-12-21 22:00 | disposition home or self-care (01) ==
LOC: OBT 16:36 → L-D 16:39 → OBT 22:00
PROVIDERS: ATTEND Obstetrics & Gynecology
DX: O47.1 False labor at or after 37 completed weeks of gestation (principal); Z3A.37 37 weeks gestation of pregnancy
CPT/HCPCS: 76818; Z7500; G0463

== ENCOUNTER 2018-12-31 10:48 | Inpatient (IN) | payer MEDICAID ==
[~2018-12-31] VITALS: Ht 152.4 cm; Wt 71.4 kg
[~2018-12-31 10:48] MED LIST changes: -AMOX1TAB10 PO; -IBUP-1542 PO; -PHEN-651 PO
[2018-12-31 11:12] VITALS: BP 91/50; PULSE 71; RESP 18; Ht 152.4 cm; Wt 71.4 kg
[2018-12-31] MEDS ORDERED: MISOPROSTOL 200 MCG TAB PR PRN ×2 (12:00→20:30)
[2018-12-31] MEDS ORDERED: CARBOPROST 250 MCG INJ IM PRN ×2 (12:00→20:30)
[2018-12-31] MEDS ORDERED: LIDOCAINE 1% (MPF) 30 ML INJ INJ PRN (12:00)
[2018-12-31] MEDS ORDERED: BUTORPHANOL 2 MG INJ IV PRN (12:00)
[2018-12-31] MEDS ORDERED: OXYTOCIN 30 UNITS/LR 500 ML IV SCH ×3 (12:00→20:14)
[2018-12-31] MEDS ORDERED: OXYTOCIN 30 UNITS/LR 500 ML IV PRN ×2 (12:00→20:30)
[2018-12-31] MEDS ORDERED: METHYLERGONOVINE 0.2 MG INJ IM PRN (12:00)
[2018-12-31] MEDS: LACTATED RINGER'S 1,000 ML IV SCH ×2 (12:42→15:34)
[2018-12-31] MEDS: BUTORPHANOL 2 MG INJ IV PRN ×3 (14:27→19:57)
[2018-12-31] MEDS ORDERED: MINERAL OIL LIGHT 10 ML VIAL TOP ONE (16:00)
--- NOTE | 2018-12-31 19:19 | HP ---
Date/Time of Note Date/Time of Note DATE: 12/31/18 TIME: 19:14 OB - History Hx of Present Free Text/Dictation 33 y.o at 39week c/o UC's and vaginal bleeding Initial VE 2/80/-2 Tracing CAT I no record is available admitted for expectant management. Chief Complaint: UC's and vaginal bleeding Estimated Due Date: Jan 07, 2019 : 5 Para: 4 Spontaneous : 1 Therapeutic : 0 Care: Other Ultrasounds: Other Obstetrical Complications: None Medical Complications: None Past Family/Social History * Past Medical, Surgical, Family and Obstetric Histories reviewed from chart. Blood Type: Unknown Rubella: unknown RPR/VDRL: Unknown GBS Status: Unknown HBsAG: Unknown OB Admission Exam Vital Signs Vital Signs Vital Signs Date Temp Pulse Resp B/P (MAP) Pulse Ox O2 O2 Flow FiO2 Time Delivery Rate 12/31/18 98.1 71 18 91/50 (64) 11:12 Physical Exam HEENT: WNL Heart: Rhythm Normal Lungs: Clear, Equal Abdomen: WNL Extremities: Normal Reflexes: Normal Cervical Dilatation: 2cm Effacement: Other (80%) Station: -2 Heart Rate: 140's Accelerations: Accelerations Present Decelerations: No Decelerations Varibility: Moderate Contractions on Admission: >10 Minutes Apart Intensity: Mild Last 72 hours Lab Results CBC & BMP 12/31/18 12:30 OB Assessment/Plan Other Assessment: IUP 39w in early labor Plan: Expectant Management NIDHI RODRIGUEZ MD Dec 31, 2018 19:19
--- NOTE | 2018-12-31 20:14 | LDN ---
Date/Time of Note Date/Time of Note DATE: 12/31/18 TIME: 20:11 Delivery Summary December 31, 2018 I was called to cover for delivery. Patient was 8 cm with bulging bag of water with anterior lip attended the patient bedside. AROM was performed using Needle. Clear fluid noted. Anterior lip reduced with maternal pushing effort. Deceleration during second stage of labor noted. Baby was delivered shortly after rupture of membrane while mom was effectively pushing. Weeks of Gestation 39 weeks Placenta Delivered: Spontaneously Meconium: none Episiotomy: No Indication for episiotomy N/A Perineal laceration: 1 Laceration repair: First-degree perineal laceration repaired after local infiltration using lidocaine with 3-0 chromic Anesthesia type: None Estimated blood loss: 200 Sponge & Needle done & correct: Yes All needle counts correct: Yes Any foreign bodies felt in the: No Infant Delivery Information Sex Infant Sex: female Apgars 1 Minute: 6 5 Minute: 8 10 Minute: 9 Suctioning Nose & mouth suctioned at octavio: Yes Delee suction performed: Yes Umbilical Cord Umbilical cord with: 3 Vessels Cord presentations: no nuchal cord Cord Blood was obtained: Yes ILIANA MAE MD Dec 31, 2018 20:14
[2018-12-31] MEDS ORDERED: LANOLIN HPA 1 PKT TOP PRN (20:30)
[2018-12-31] MEDS ORDERED: ZOLPIDEM 5 MG TAB PO PRN (20:30)
[2018-12-31] MEDS ORDERED: WITCH HAZEL/GLYCERIN PAD PR PRN (20:30)
[2018-12-31] MEDS ORDERED: HYDROCODONE/APAP (5/325) TAB PO PRN (20:30)
[2018-12-31] MEDS ORDERED: DIPHENHYDRAMINE 25 MG CAP PO PRN (20:30)
[2018-12-31] MEDS: PRENATAL VITAMIN PO SCH (20:30)
[2018-12-31] MEDS: IBUPROFEN 600 MG TAB PO SCH ×2 (20:30→23:39)
[2018-12-31] MEDS ORDERED: NACL 0.9% 3 ML SYG IV SCH (20:30)
[2018-12-31] MEDS ORDERED: ONDANSETRON 4 MG INJ IV PRN (20:30)
[2018-12-31] MEDS ORDERED: ACETAMINOPHEN 325 MG TAB PO PRN (20:30)
[2018-12-31 21:55] VITALS: BP 99/63; PULSE 57; RESP 18
[2018-12-31] MEDS: SENNA/DOCUSATE NA (8.6MG/50MG) TAB PO SCH (23:40)
[2019-01-01] VITALS (8 sets, daily range): BP systolic 83–97; BP diastolic 45–56; PULSE 66–76; RESP 18–19
[2019-01-01] MEDS: IBUPROFEN 600 MG TAB PO SCH ×3 (06:01→17:26)
[2019-01-01] MEDS: PRENATAL VITAMIN PO SCH (11:23)
[2019-01-01] MEDS: SENNA/DOCUSATE NA (8.6MG/50MG) TAB PO SCH ×2 (11:23→21:15)
--- NOTE | 2019-01-01 17:34 | PN ---
Date/Time of Note Date/Time of Note DATE: 01/01/19 TIME: 17:34 OB Subjective Subjective Subjective Subjective: Patient without complaints. Tolerating a regular diet. Breast-feeding. Lochia within normal limits. + ambulating. + Flatus. Objective: Vital signs within normal limits. H/H: 11.7/34.4 General: No apparent distress. Abdomen: Fundus firm two fingerbreadths below umbillicus Extremities nontender to palpation. Assessment/plan: 1. day #1. routine pp care. 2. Anemia acute blood loss-expectant. 3. Hypotension-asymptomatic. orthostatics. ELIZABETH ARROYO MD Jan 01, 2019 17:34
[2019-01-02] MEDS: IBUPROFEN 600 MG TAB PO SCH ×3 (00:57→12:19)
[2019-01-02 04:10] VITALS: BP 84/50; PULSE 69; RESP 18
[2019-01-02 08:00] VITALS: BP 88/45; PULSE 65; RESP 16
[2019-01-02] MEDS ORDERED: VARICELLA VACCINE LIVE/PF 1,350 UNIT/0.5 ML ML SC* ONE (09:00)
[2019-01-02] MEDS ORDERED: DIPHTH/TET/ACEL PERTUSS (ADULT) 0.5 ML VIAL IM* ONE (09:00)
[2019-01-02] MEDS ORDERED: MEASLES,MUMPS,RUBELLA VACCINE INJ SC* ONE (09:00)
[2019-01-02] MEDS: PRENATAL VITAMIN PO SCH (09:14)
[2019-01-02] MEDS: SENNA/DOCUSATE NA (8.6MG/50MG) TAB PO SCH (09:14)
[2019-01-02] MEDS ORDERED: IBUP-1542 PO (14:12)
--- NOTE | 2019-01-02 14:12 | DS ---
Date/Time of Note Date/Time of Note DATE: 01/02/19 TIME: 14:11 Obstetrical Discharge Record Final Diagnosis Final Diagnosis: Term delivered Other Final Diagnosis Subjective: Patient without complaints. Tolerating regular diet. ambulating. voiding. Objective: Vital signs stable and wnl H/H: 11.7/34.4 General: No apparent distress. Abdomen: Fundus firm two fingerbreadths below umbillicus Extremities nontender to palpation. Assessment/plan: 1. day#2-presented to the hospital at 39 weeks with contractions and vaginal bleeding. Delivered vaginally on 12/31/2018. Her hospital course was uncomplicated. 2. Anemia acute blood loss-expectant. Condition on Discharge Physical Assessment Patient Condition: Stable MILESTONE,ELIZABETH TUBBS Jan 02, 2019 14:12
--- NOTE | 2019-01-03 17:50 | DELSUM ---
Delivery Summary A-C Datetime Report Generated by CPN: 01/03/2019 17:50 DELIVERY PERSONNEL Radiation Oncology Manager: Genie Tineoe MATERNAL INFORMATION Delivery Anesthesia: None Medications in Delivery: LR 500ML PITOCIN 30 UNITS Delivery QBL (ml): 200 Placenta Cultured: No Maternal Complications: None LABOR SUMMARY EDC: 01/07/2019 00:00 No. Babies in Womb: 1 Attempted: No Labor Anesthesia: IV Sedation LABOR INFORMATION Reason for Induction: Not Applicable Onset of Labor: 12/31/2018 10:30 Complete Dilatation: 12/31/2018 19:13 Group B Beta Strep: Negative Antibiotics # of Doses: 0 Steroids Given: None Reason Steroids Not Administered: Not Applicable MEMBRANES Membranes Rupture Method: Artificial Rupture of Membranes: 12/31/2018 19:13 Length of Rupture (hr): 0.23 Amniotic Fluid Color: Clear Amniotic Fluid Amount: Moderate Amniotic Fluid Odor: None STAGES OF LABOR Stage 1 hr: 8 Stage 1 min: 43 Stage 2 hr: 0 Stage 2 min: 14 Stage 3 hr: 0 Stage 3 min: 0 Total Time in Labor hr: 8 Total Time in Labor min: 57 VAGINAL DELIVERY Episiotomy: None Laceration Extension: Second Degree Laceration Type: Perineal Laceration Repair: Yes Initial Vag Sponge Count: 10 Final Vag Sponge Count: 10 Initial Vag Sharps Count: 1 Final Vag Sharps Count: 1 Sponge Count Correct: Yes; Vaginal Sweep Performed Sharps Count Correct: Yes BABY A INFORMATION Delivery Date/Time: 12/31/2018 19:27 Method of Delivery: Vaginal Born in Route : No : N/A Forceps: N/A Vacuum Extraction: N/A Shoulder Dystocia : N/A SHOULDER DYSTOCIA BABY A Infant Delivery Date/Time: 12/31/2018 19:27 PRESENTATION/POSITION BABY A Presentation: Cephalic Cephalic Presentation: Vertex Vertex Position: Left Occipital Anterior Breech Presentation: N/A PLACENTA INFORMATION BABY A Placenta Delivery Time : 12/31/2018 19:27 Placenta Method of Delivery: Spontaneous Placenta Status: Delivered SCORES BABY A Heart Rate 1 min: >100 bpm Resp Effort 1 min: Good Cry Reflex Irritability 1 min: Cough/Sneeze/Pulls Away Muscle Tone 1 min: Active Motion Color 1 min: Blue/Pale Resuscitation Effort 1 min: Tactile Stimulation SCORE 1 MIN: 8 Heart Rate 5 min: >100 bpm Resp Effort 5 min: Good Cry Reflex Irritability 5 min: Cough/Sneeze/Pulls Away Muscle Tone 5 min: Active Motion Color 5 min: Body [place], Extremit Blue Resuscitation Effort 5 min: Tactile Stimulation SCORE 5 MIN: 9 INFANT INFORMATION BABY A Gestational Age at Delivery: 39.0 Gestational Status: Full Term- 39- 40.6 Weeks Outcome : Liveborn, with signs of life Infant Condition : Stable Infant Sex: Female IDENTIFICATION/MEDS BABY A ID Band Number: [id number] ID Band Location: Right Leg; Left Arm Sensor Applied: Yes Sensor Number: [id number] Sensor Location : Cord Clamp Vitamin K Given : Not Given Erythromycin Given: Not Given WEIGHT/LENGTH BABY A Infant Birthweight (gm): 2790 Infant Weight (lb): 6 Infant Weight (oz): 2 Infant Length (in): 18.50 Length (cm): 46.99 CORD INFORMATION BABY A No. Cord Vessels: 3 Nuchal Cord : N/A Cord Blood Taken: No Banking/Donate Info: NO Suction: Mouth; Nose ASSESSMENT BABY A Complications: Decreased Variability; Multiple Variable Decels Physical Findings at Delivery: Within Normal Limits Infant Respirations: Appears Normal Dental Billing Specialist/ALS Called : No Care By: Shital Cooney Transferred To: Remains with Mother
== END 2019-01-02 15:50 | disposition home or self-care (01) | DRG 806 ==
LOC: OBT 10:48 → L-D 10:49 → OBT 11:53 → PP1 21:34
PROVIDERS: ADMIT Obstetrics & Gynecology; ATTEND Obstetrics & Gynecology
PROC: 10E0XZZ Delivery of Products of Conception, External Approach (ICD-10-PCS; principal; 2018-12-31)
PROC: 0HQ9XZZ Repair Perineum Skin, External Approach (ICD-10-PCS; 2018-12-31)
DX: O70.0 First degree perineal laceration during delivery (principal); D62 Acute posthemorrhagic anemia; O99.02 Anemia complicating childbirth; Z3A.39 39 weeks gestation of pregnancy; Z37.0 Single live birth
CPT/HCPCS: 85014; 85018; 85025; 85610; 85730; 86592; 86850; 86900; 86901; 87340; 90715; 90716; 99464; G0463; J0595; J2590; J7120